=== PATIENT | female | born 1950 | race Caucasian/White ===

== ENCOUNTER → 2016-12-03 | Outpatient (CLI) | payer SELFPAY ==
--- NOTE | 2016-12-04 13:27 | KCIC ---
Coronary calcium score CT chest without contrast. Indication: Cardiovascular screening Reason For Study CT CALCIUM SCORING TECHNIQUE With retrospective electrocardiogram gaiting, axial reconstructed noncontrast images of the chest at the level of the heart were performed. Images were post processed on an independent workstation and calcium score was calculated. FINDINGS Total coronary calcium score is 0. This places the patient in the lowest percentile rank. This means that nearly all females of this age have a higher calcium score. There is no calcified plaque burden and very low cardiovascular risk. This is based on the calcium score of 0 of the left main coronary artery, 0 of the left anterior descending artery, score of 0 involving the left circumflex artery and score of 0 of the right coronary artery. Non coronary findings show a tiny noncalcified 4.4 millimeter nodule in the posterior left lower lobe, axial image 18/43. STIR linear bibasilar opacities likely atelectasis also noted. IMPRESSION Total coronary calcium score is 0. This places the patient in the lowest percentile rank. This means that nearly all women of this age have a higher calcium score. There is no calcified plaque burden and very low cardiovascular risk. 4.4 millimeter noncalcified nodule in the left lower lobe. A dedicated CT scan of the chest may be obtained to evaluate potential additional nodules. Bibasilar atelectasis Electronically signed by: Katt Marvin MD (Dec 04, 2016 13:24:58)
== END | disposition home or self-care (01) ==
LOC: KCIC CT 10:10
PROVIDERS: ATTEND Family Medicine
DX: Z13.6 Encounter for screening for cardiovascular disorders (principal)
CPT/HCPCS: 75571

== ENCOUNTER → 2017-12-13 | Outpatient (CLI) | payer MEDICARE ==
[2017-12-13] MEDS: GADOBUTROL 7.5 MMOL/7.5 ML VIAL IV (13:07)
== END | disposition home or self-care (01) ==
LOC: KCIC MRI 12:05
DX: M43.16 Spondylolisthesis, lumbar region (principal); M51.36 Other intervertebral disc degeneration, lumbar region
CPT/HCPCS: 72158; A9585

== ENCOUNTER → 2019-03-20 | Outpatient (CLI) | payer MEDICARE ==
[~2019-03-20] MED LIST: ASPI-482 PO; RALO60TA PO
--- NOTE | 2019-03-20 13:48 | RAD ---
MR#: [id number] Date of Study: 03/20/2019 Ordering Physician: DARLYN ASTORGA, Referring Physician: RACHEL HOUSE Tech: YAMILE Chino, ARRT (R) (N) APPROVED REPORT Test Type: Exercise Stress Nurse/Tech: Jessica Chris R.N. Test Indications: fatigue, angina Cardiac History: high chol Medications: see ehr Medical History: see ehr Resting ECG: sr Resting Heart Rate: 91 bpm Resting Blood Pressure: 126/51mmHg Pretest Chest Pain: No chest pain Nurse/Tech Notes Lungs cta, heart tones regular Consent: The procedure was explained to the patient in lay terms. Informed consent was witnessed. Milton eout was entered into [employer]. History and Stress Test performed by JONATAN Villarreal Stress Symptoms No chest pain or symptoms. POST EXERCISE Reason for Termination: Reached target heart rate Target HR: Yes Max HR: 178 bpm 115% of Maximum Predicted HR: 154 bpm Exercise duration: 6:59 min:sec, 3 Stage Exercise capacity: 10.0METs Max Blood Pressure: 138/62mmHg Blood Pressure response to exercise: Normal blood pressure response during stress. Heart Rate response to exercise: very fast to reach target, pt was not fatigued-wanted to continue wa lking Chest Pain: No. Arrhythmia: No. ST Change: No. INTERPRETATION Stress EKG Conclusion: Negative for ischemia Imaging Protocol IMAGE PROTOCOL: Rest Tc-99m/stress Tc-99m 1 day Rest: Stress: Viability: Radiopharm.Tc99m [id number] Sestamibi Psap27nGp 32mCi Img Date 03/20/2019 03/20/2019 Inj-Img [id number]. 60min. Rest Admin Site:IV - Right AntecubitalAdministrator:Sanju Carter, (R)(N) Stress Admin Site: IV - Right AntecubitalAdministrator: JONATAN Villarreal STRESS DATA End Diast. Vol.27.0mlLVEDV index BSA17.0ml End Syst. Vol.1.0mlLVESV index BSA1.0ml Myocardial Mass72.0gEject. Ysdevzbk61.0% Stress Scores Regional WT0.00Summed WT1.00 Regional WM1.00Summed WM1.00 The rest and stress images show normal perfusion, normal contraction and thickening. LV Perf. Quant 17 Seg. SSS0.00 17 Seg. SRS0.00 17 Seg. SDS0.00 Stress Defect Extent (% LAD)0.00Rest Defect Extent (% LAD)0.00Rev. Defect Extent (% LAD)0.00 Stress Defect Extent (% LCX) 0.00Rest Defect Extent (% LCX)0.00Rev. Defect Extent (% LCX)0.00 Stress Defect Extent (% RCA)0.00Rest Defect Extent (% RCA)0.00Rev. Defect Extent (% RCA)0.00 Stress Defect Extent (% CHERYL)0.00Rest Defect Extent (% CHERYL)0.00Rev. Defect Extent (% CHERYL)0.00 Other Information Risk Assessment: Low Risk Conclusion 1. No evidence of EKG changes with stress testing. 2. Normal perfusion at stress/rest. 3. Low risk study. 4. EF > 60%. Signed by : Jose Angel Connell, Electronically Approved : 03/20/2019 13:47:57
== END | disposition home or self-care (01) ==
LOC: NM 09:54
PROVIDERS: ATTEND Family Medicine
DX: E78.00 Pure hypercholesterolemia, unspecified (principal); I20.8 Other forms of angina pectoris; R53.83 Other fatigue; R53.1 Weakness; Z79.01 Long term (current) use of anticoagulants
CPT/HCPCS: 78452; 93017; A9500; 96376

== ENCOUNTER → 2020-05-02 | Outpatient (CLI) | payer MEDICARE ==
[~2020-05-02] MED LIST changes: +CALC-71 PO; +DOCU-109 PO; +FLUT9.9S NS; +MAGN500C10 PO; +OXYC-325 PO
== END ==
LOC: LAB 13:30
PROVIDERS: ATTEND Surgery
DX: Z01.812 Encounter for preprocedural laboratory examination (principal); Z20.828 Contact with and (suspected) exposure to other viral communicable diseases
CPT/HCPCS: U0003-CS

== ENCOUNTER → 2020-05-06 | Day surgery (SDC) | payer MEDICARE ==
[~2020-05-06] VITALS: Ht 157.5 cm; Wt 58.5 kg
[~2020-05-06] MED LIST changes: +ACETAMINOPHEN 500 MG TABLET PO ONE; +BUPIVACAINE-EPI 0.25%-1:200000 MPF 30 ML VIAL. ONE; +DEXAMETHASONE SOD PHOS 4 MG/ML VIAL ONE; +GLYCOPYRROLATE 1 MG/5 ML VIAL. ONE; +HYDROmorphone 2 MG/ML VIAL IV PRN; +IOHEXOL 300 MG/ML 50 ML VIAL. ONE; +IV RINGERS,LACTATED 1000ML 1,000 ML IV SCH; +LIDOCAINE 2% PF 5 ML VIAL. ONE; +MORPHINE SULFATE 2 MG/ML VIAL. IV PRN; +NEOSTIGMINE METHYLSULFATE 5 MG/5 ML SYRINGE. ONE; +ONDANSETRON PF 4 MG/2 ML VIAL. IV PRN; +ONDANSETRON PF 4 MG/2 ML VIAL. ONE; +PROCHLORPERAZINE 10 MG/2 ML VIAL. IV PRN; +PROPOFOL 10 MG/ML (20ML) VIAL. IV ONE; +ROCURONIUM 50 MG/5 ML VIAL. ONE; +SEVOFLURANE 31 TO 60 MINUTES. IH ONE; +SURGICEL HEMOSTAT 4X8 EACH. ONE; +ceFAZolin SODIUM IV Push 1 GM VIAL. IVP PRN; +fentaNYL PF VIAL 100 MCG/2 ML VIAL IV PRN; +fentaNYL PF VIAL 100 MCG/2 ML VIAL ONE; +fentaNYL PF VIAL 250 MCG/5 ML VIAL ONE; +oxyCODONE/APAP 5/325 1 TAB TABLET ONE; +oxyCODONE/APAP 5/325 1 TAB TABLET PO ONE
--- NOTE | 2020-05-06 07:22 | PDOC1 ---
History and Physical Date of Admission Date of Admission DATE: 05/06/20 TIME: 07:18 Identification/Chief Complaint Chief Complaint Right upper quadrant abdominal pain Source Source: Patient History of Present Illness History of Present Illness 69-year-old female describes epigastric abdominal fullness and discomfort in the right upper quadrant dull ache to sharp pain been present for approximately 2 years worse after eating CT scan recently done shows gallstones Past Medical History Cardiovascular: No pertinent hx Pulmonary: No pertinent hx GI: GERD Heme/Onc: No pertinent hx Hepatobiliary: No pertinent hx Psych: No pertinent hx Musculoskeletal: Osteoarthritis Infectious disease: No pertinent hx ENT: No pertinent hx Renal/: No pertinent hx Endocrine: No pertinent hx Dermatology: No pertinent hx Past Surgical History Past Surgical History: Other (Breast biopsies and laparoscopic oophorectomy) Family History Family History: No Significant Social History Smoke: No ALCOHOL: none Drugs: None Current Medications Current Medications Current Medications Ondansetron HCl (Zofran) 4 mg PRN Q6HRS PRN IV NAUSEA/VOMITING; Start 05/06/20 at 07:00; Stop 05/07/20 at 06:59 Fentanyl Citrate (Fentanyl 2ml Vial) 25 mcg PRN Q5MIN PRN IV MILD PAIN 1-3; Start 05/06/20 at 07:00; Stop 05/07/20 at 06:59 Fentanyl Citrate (Fentanyl 2ml Vial) 50 mcg PRN Q5MIN PRN IV MODERATE TO SEVERE PAIN; Start 05/06/20 at 07:00; Stop 05/07/20 at 06:59 Morphine Sulfate (Morphine Sulfate) 1 mg PRN Q10MIN PRN IV SEVERE PAIN 7-10; Start 05/06/20 at 07:00; Stop 05/07/20 at 06:59 Ringer's Solution 1,000 ml @ 30 mls/hr Q24H IV Last administered on 05/06/20at 07:03; Start 05/06/20 at 07:00; Stop 05/06/20 at 18:59 Hydromorphone HCl (Dilaudid) 0.5 mg PRN Q10MIN PRN IV SEV PAIN, Second choice; Start 05/06/20 at 07:00; Stop 05/07/20 at 06:59 Prochlorperazine Edisylate (Compazine) 5 mg PACU PRN PRN IV NAUSEA, MRX1; Start 05/06/20 at 07:00; Stop 05/07/20 at 06:59 Acetaminophen (Tylenol) 1,000 mg 1X PREOP ONCE PO Last administered on 05/06/20at 07:14; Start 05/06/20 at 06:00; Stop 05/06/20 at 06:01; Status DC Cefazolin Sodium (Ancef) 1 gm 1X PREOP PRN IVP PRIOR TO PROCEDURE; Start 05/06/20 at 06:00 Rocuronium [place] (Zemuron) 50 mg STK-MED ONCE .ROUTE ; Start 05/06/20 at 06:51; Stop 05/06/20 at 06:51; Status DC Fentanyl Citrate (Fentanyl 5ml Vial) 250 mcg STK-MED ONCE .ROUTE ; Start 05/06/20 at 06:51; Stop 05/06/20 at 06:51; Status DC Iohexol (Omnipaque 300 Mg/ml) 50 ml STK-MED ONCE .ROUTE ; Start 05/06/20 at 06:56; Stop 05/06/20 at 06:56; Status DC Cellulose (Surgicel Hemostat 4x8) 1 each STK-MED ONCE .ROUTE ; Start 05/06/20 at 06:56; Stop 05/06/20 at 06:56; Status DC Bupivacaine HCl/ Epinephrine Bitart (Sensorcaine-Epi 0.25%-1:047267 Mpf) 30 ml STK-MED ONCE .ROUTE ; Start 05/06/20 at 06:56; Stop 05/06/20 at 06:57; Status DC Active Scripts Active Reported Colace (Docusate Sodium) 100 Mg Capsule 100 Mg PO DAILY Magnesium (Magnesium Oxide) 500 Mg Capsule 500 Mg PO DAILY Calcium 600 + Vit D Caplet (Calcium Carbonate/Vitamin D3) 1 Each Tablet 1 Each PO DAILY Flonase Allergy Relief (Fluticasone Propionate) 9.9 Ml [place].susp 2 Sprays NS DAILY Aspir 81 (Aspirin) 81 Mg Tablet.dr 81 Mg PO Evista (Raloxifene Hcl) 60 Mg Tablet 60 Mg PO DAILY Allergies Allergies: Coded Allergies: celecoxib (Verified Allergy, Intermediate, ITCHY RASH, 05/04/20) erythromycin base (Verified Allergy, Intermediate, GI UPSET, 05/04/20) acetaminophen (Verified Allergy, Mild, INSOMNIA, 05/04/20) codeine (Verified Allergy, Unknown, HALLUCINATIONS, 05/04/20) hydrocodone (Verified Allergy, Unknown, INSOMNIA, 05/04/20) ROS Gastrointestinal: Yes Abdominal Pain Physical Exam General: Alert, Oriented X3, Cooperative, No acute distress HEENT: Atraumatic Lungs: Clear to auscultation, Normal air movement Heart: RRR, no murmurs Abdomen: Normal bowel sounds, Soft, Other (Tender to palpation right upper quadrant) Rectal Exam: not examined Extremities: No clubbing, No edema Skin: No significant lesion Neuro: Normal speech Vitals Vitals Vital Signs Date Time Temp Pulse Resp B/P (MAP) Pulse Ox O2 Delivery O2 Flow Rate FiO2 05/06/20 07:00 97.2 83 100 97.2 05/06/20 06:59 16 172/79 Room Air VTE Prophylaxis Ordered VTE Prophylaxis Devices: Yes VTE Pharmacological Prophylaxi: Contraindicated Assessment/Plan Assessment/Plan Chronic cholecystitis plan laparoscopic cholecystectomy Justifications for Admission Other Justification THOMAS COPELAND MD May 06, 2020 07:22
--- NOTE | 2020-05-06 08:10 | PDOC4 ---
Operative Note Operative Note Date: 2019 at 808 Preoperative diagnosis: Chronic cholecystitis Postoperative diagnosis: Same Procedure: Laparoscopic cholecystectomy Surgeon: Miguel Angel Specimen: Gallbladder Dictation: Patient is a 69-year-old female with right upper quadrant abdominal pain and a CT scan showing gallstones. Procedure laparoscopic cholecystectomy was explained to the patient detail all risk benefits were also discussed including bleeding infection injury to intra-abdominal contents possibly necessitating further or open operations alternatives to this procedure also discussed with the patient who seemed to understand and gave both verbal and written consent to have the procedure performed. Patient was taken to the operating room placed in supine position general anesthesia was initiated once patient was sleeping intubated her abdomen was prepped and draped usual sterile fashion using ChloraPrep. An area just below the umbilicus was injected quarter percent Marcaine with epinephrine incision was made with 11 blade scalpel and a varies needle was placed within the abdomen creating pneumoperitoneum. Once this was complete 11 mm port was placed and a 5 mm camera was placed within the abdomen which was inspected no other red maladies were noted. 5 mm port was placed in the epigastrium a 5 mm port was placed in the right midabdomen and a 5 mm port was placed in the right lateral abdomen. The dome of the gallbladder is grasped retracted cephalad the infundibulum of the gallbladder is grasped retracted laterally exposing the triangle. The adherent tissues of the triangle were taken down with blunt dissection exposing the cystic duct and cystic artery both were doubly clipped and transected. The gallbladder was taken off the liver with hook electrocautery placed in Endo Catch bag removed and the umbilicus. The right upper quadrant was irrigated and suctioned dry hemostasis was deemed to be appropriate the pneumoperitoneum was reduced all ports were removed the fascial defect at the umbilicus was closed with a [id number] 0 Vicryl suture and the skin was reapproximated all port sites with 4 subcuticular Monocryl Mastisol Steri-Strips and island dressings were applied. Patient was awakened and extubated in the operating room taken to recovery in stable condition all sponge instrument needle counts listed as correct. Estimated blood loss 5 mL. THOMAS COPELAND MD May 06, 2020 08:10
--- NOTE | 2020-05-06 08:12 | DISCH ---
DISCHARGE INSTRUCTIONS Condition on Discharge Condition on Discharge: Stable Activity After Discharge Activity Instructions for Disc: Avoid exertion Other activity instructions: No lifting more than 20 pounds for 2 weeks Diet after Discharge Diet after Discharge: Low Fat Wound Incision Care Other wound/incision instructi: May shower in 24 hours Contacting the after DC Call your doctor for: If your condition worsens Follow-Up Follow up with: Dr. Copeland in 2 weeks THOMAS COPELAND MD May 06, 2020 08:12
[2020-05-06 08:57] VITALS: BP 142/66
--- NOTE | 2020-05-09 15:08 | PATHOLOGY ---
[facility] Accession Number: [id number] . 01 Material submitted: . gallbladder - GALLBLADDER AND CONTENTS . 01 Clinical history: . CHRONIC CHOLECYSTITIS . 02 Diagnosis: Gallbladder, cholecystectomy: - Cholelithiasis. - Chronic cholecystitis. 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 02 Comment: There is no evidence of malignancy. ([facility]:analisa; 05/09/2020) . 02 Electronically signed: . Doyle Mckeon MD, Pathologist NPI- [id number] . 01 Gross description: . Received in formalin labeled "Joe, Kristi, gallbladder and contents" is an intact cholecystectomy specimen measuring 8.1 x 3.2 x 2.6 cm. The serosa is rios-green and smooth and the specimen is opened to reveal rios-green and velvety mucosa without polyps or masses. The average wall thickness is 0.1 cm. Multiple bosselated rios-green calculi are present, measuring in aggregate 2.6 x 2.3 x 1.0 cm and ranging from 0.3-1.3 cm in greatest dimension. Bulldozer Press Operator sections of the fundus and body and the cystic duct margin are submitted in A1. [place] [place] [facility] 05/06/2020 1758 Local . 02 Pathologist provided ICD-10: K80.10 . 02 CPT . 478732 Specimen Comment: A courtesy copy of this report has been sent to [phone], [phone] Specimen Comment: [id number] Specimen Comment: Report sent to / DR ASTORGA Performed at: [address], [place], [place] [id number] MD Luciano Gonzalez MD Phone: [phone] Performed at: [address] [id number] MD Doyle Mckeon MD Phone: [phone]
== END | disposition home or self-care (01) ==
LOC: SURG 06:13
PROVIDERS: ATTEND Surgery
DX: K80.10 Calculus of gallbladder with chronic cholecystitis without obstruction (principal); K21.9 Gastro-esophageal reflux disease without esophagitis; M19.90 Unspecified osteoarthritis, unspecified site; Z88.5 Allergy status to narcotic agent; Z88.8 Allergy status to other drugs, medicaments and biological substances; Z79.82 Long term (current) use of aspirin; Z79.899 Other long term (current) drug therapy
CPT/HCPCS: 47562; 88304; J0690; J1100; J2405; J2704; J2710; J3010; J3490; J7030; Q9967